=== PATIENT | male | born 1960 | race African-American/Black ===

== ENCOUNTER 2021-06-03 00:15 | Day surgery (SDC) | payer BC, SELFPAY ==
[2021-05-20 13:25] VITALS: BMI 29.5
[2021-06-03 11:25] VITALS: BP 135/86; PULSE 61; RESP 18; TEMP 36.2; O2SAT 100; BMI 29.2
[2021-06-03] MEDS: LACTATED RINGERS 1,000 ML 150 ML IV CONT (11:32)
--- NOTE | 2021-06-03 12:05 | WPDANESEPPF ---
Anes - Initial Pre Proc Eval Procedure: Operation Date: 06/03/21 12:30 Proposed Procedures p Screening Colonoscopy - Scottie Noriega MD Date/Time: 06/03/21 12:05 Surgeon: Scottie Noriega MD Pre Op Diagnosis: neoplasm screening Patient Data Age: 60 Gender: M Height: 1.88 m Weight: 103.1 kg Last Vital Signs Temp 97.2 F L 06/03/21 11:25 Pulse 61 06/03/21 11:25 Resp 18 06/03/21 11:25 BP 135/86 06/03/21 11:25 Pulse Ox 100 06/03/21 11:25 Allergies Allergy/AdvReac Type Severity Reaction Status Date / Time No Known Allergies Allergy Verified 06/03/21 11:25 Home Medications Medication Instructions Recorded Confirmed Type amlodipine 10 mg PO DAILY 05/20/21 05/20/21 History atorvastatin 20 mg PO DAILY 05/20/21 05/20/21 History Patient hx anesthesia problems: none Family hx anesthesia problems: none Results Review: All pre-operative results and documents have been reviewed as part of the pre-operative evaluation. [facility] Past Medical History Medical History (Updated 06/03/21 @ 11:55 by John Hernandez MD) Hyperlipidemia Hypertension Social History Social History Years smoked: 6 Smoking status: Former smoker Tobacco type: cigarettes Alcohol intake: current Drinks per week: 7 Alcohol use details: red wine - one glass/day Substance use: never Substance use type: does not use Living arrangements: with family Spiritual care concerns: Yes (no blood products) Anes - Eval Final PreProcedure Day of Procedure 06/03/21 12:05 Patient weight: overweight Heart: regular rate and rhythm Lungs: clear to auscultation Airway: Mallampati scale class II Neurological: alert and oriented Last oral intake: >/= 8 hours ASA classification: II Emergent: no Anesthetic plan: proceed Anesthesia type and monitoring: general GIVS and standard monitoring Results Review: All pre-operative results and documents have been reviewed as part of the pre-operative evaluation. Informed Consent: The patient's anesthetic plan and its attendant risks and benefits were discussed with the patient/family/POA. Questions were solicited and answers provided to the satisfaction of the patient/family/POA.
--- NOTE | 2021-06-03 12:16 | PM.HPGS ---
History of Present Illness History of Present Illness Consent: Risks, benefits, and alternatives have been discussed and questions answered. Patient agrees to proceed with procedure. Chief complaint: neoplasm screening Narrative: David Seals is a 60 year old male with colon polyp about 5 years ago. Review of Systems Constitutional: Constitutional: Denies headache(s) and Denies weakness Eyes: Eyes: Denies blurry vision ENT: Reports Normal hearing present, Denies headache(s) and Denies neck pain Cardiovascular: Cardiovascular: Denies chest pain and Denies dyspnea Respiratory: Respiratory: Denies dyspnea Gastrointestinal: Gastrointestinal: Reports no additional gastrointestinal complaints Genitourinary: Genitourinary: Denies dysuria Musculoskeletal: Musculoskeletal: Denies neck pain Integumentary/Breasts: Skin/Breast: Denies dry skin Neurologic: Reports Normal hearing present, Denies headache(s) and Denies weakness Psychiatric: Psychiatric: Denies anxiety Endocrine: Endocrine: Denies change in body appearance Hematologic/Lymphatic: Hematologic/Lymphatic: Denies easy bleeding Allergic/Immunologic: Allergic/Immunologic: Denies urticaria PMFSH Past Medical History Medical History (Updated 06/03/21 @ 12:17 by Scottie Noriega MD) Colon polyp Hyperlipidemia Hypertension Social History Social History Years smoked: 6 Smoking status: Former smoker Tobacco type: cigarettes Alcohol intake: current Drinks per week: 7 Alcohol use details: red wine - one glass/day Substance use: never Substance use type: does not use Living arrangements: with family Spiritual care concerns: Yes (no blood products) Meds Home Medications and Allergies Home Medications Medication Instructions Recorded Confirmed Type amlodipine 10 mg PO DAILY 05/20/21 05/20/21 History atorvastatin 20 mg PO DAILY 05/20/21 05/20/21 History Allergies Allergy/AdvReac Type Severity Reaction Status Date / Time No Known Allergies Allergy Verified 06/03/21 11:25 Vital Signs Vital Signs - 24 hr 06/03/21 11:25 Temperature 97.2 F L Pulse Rate 61 Respiratory Rate 18 Blood Pressure 135/86 Pulse Oximetry 100 Exam Const: General: comfortable and no acute distress HENMT: General nose exam: Normal nares present Eyes: General: appearance normal, both eyes and all related structures Neck: Neck: no JVD Resp: Auscultation: clear to auscultation bilaterally Cardio: Rate: regular rate Rhythm: regular rhythm GI: Inspection: non-distended GI Palp: Yes Soft to palpation Skin: General skin exam: normal color Neuro: General: gait normal Speech: normal speech Extrem: General: normal to inspection Psych: Mental Status: mental status grossly normal Assessment and Plan Assessment and plan (1) Colon polyp: Code(s): K63.5 - Polyp of colon Status: Acute Assessment and Plan: colonoscopy
[2021-06-03 12:40] VITALS: BP 113/69; PULSE 62; RESP 18; O2SAT 97
[2021-06-03 12:50] VITALS: BP 111/67; PULSE 58; RESP 18; O2SAT 99
[2021-06-03 13:00] VITALS: BP 114/74; PULSE 53; RESP 20; O2SAT 99
== END 2021-06-03 13:19 | disposition home or self-care (01) ==
PROVIDERS: PCP Physician Assistant; Visit Provider Internal Medicine Gastroenterology
PROC: 0DJD8ZZ Inspection of Lower Intestinal Tract, Via Natural or Artificial Opening Endoscopic (ICD-10-PCS; CPT 45378; principal; 2021-06-03 12:30)
DX: Z12.11 Encounter for screening for malignant neoplasm of colon (principal); K63.5 Polyp of colon; K64.8 Other hemorrhoids; I10 Essential (primary) hypertension; E78.5 Hyperlipidemia, unspecified; Z87.891 Personal history of nicotine dependence
CPT/HCPCS: 45380; 88305; J2704; J7120